=== PATIENT | male | born 1940 | race Caucasian/White ===

== ENCOUNTER 2018-01-26 12:51 | Observation (INO) | payer MEDICARE, OTHER ==
[2018-01-26 13:27] LABS: #Basophils 0.1 thou/uL (0.0-0.2); #Eosinphils 0.1 thou/uL (0.0-0.7); #Lymphocytes 2.1 thou/uL (1.20-3.40); #Monocytes 0.9 thou/uL (0.11-0.59); #Neutrophils 9.3 thou/uL (1.40-6.50); %Basophils 0.9 % (0.0-1.0); %Eosinophils 0.4 % (0.0-10.0); %Lymphocytes 16.6 % (21.0-51.0); %Monocytes 7.3 % (0.0-10.0); %Neutrophils 74.7 % (42.0-75.0); Mean Corpuscular HGB CONC 32.9 g/dL (32.0-36.0); Mean Corpuscular Hemoglobin 30.1 pg (27.0-31.0); Mean Corpuscular Volume 91.3 fL (78.0-98.0); Mean Platelet Volume 6.2 fL (7.4-10.4); Platelet Count 325 thou/uL (130-400); RBC Distribution Width 11.4 % (11.5-14.5); Red Blood Cell (RBC) Count 4.99 mill/uL (4.70-6.10); White Blood Cell (WBC) Count 12.4 thou/uL (4.8-10.8)
[2018-01-26 13:43] LABS: ALT (SGPT) 27 U/L (8-55); AST (SGOT) 20 U/L (5-34); Albumin 4.5 g/dL (3.4-4.8); Alkaline Phosphatase 69 U/L (40-150); Anion Gap 14 mmol/L (10-20); BUN (Urea Nitrogen) 13 mg/dL (8.4-25.7); Bilirubin, Total 0.6 mg/dL (0.2-1.2); CK (CPK) 308 U/L (30-200); Calc. Creatinine Clearance 0 mL/min (70-130); Calcium 9.4 mg/dL (7.8-10.44); Carbon Dioxide 26 mmol/L (23-31); Chloride 96 mmol/L (98-107); Estimated GFR-MDRD 74; Globulin 2.8 g/dL (2.4-3.5); Glucose 140 mg/dL (83-110); Lipase 17 U/L (8-78); Potassium 3.6 mmol/L (3.5-5.1); Protein, Total 7.3 g/dL (5.8-8.1); Sodium 132 mmol/L (136-145)
[2018-01-26 13:46] LABS: Troponin I Less than 0.010 ng/mL (< 0.028)
--- NOTE | 2018-01-26 14:34 | RAD ---
PORTABLE CHEST: HISTORY: Chest pain. COMPARISON: 01/24/2018 FINDINGS: There are chronic appearing linear markings in the lung bases. No evidence of infiltrate or effusion . No evidence of vascular congestion. The heart and mediastinal are unremarkable. IMPRESSION: Chronic lung changes appear stable. POS: [facility]
[2018-01-26] MEDS ORDERED: Labetalol HCl 100 MG/20 ML VIAL ONE (14:40)
[2018-01-26] MEDS ORDERED: Ondansetron HCl/PF 4 MG/2 ML Vial IVP PRN (16:49)
[2018-01-26] MEDS ORDERED: Ondansetron ODT 4 MG TAB SL PRN (16:49)
[2018-01-26 17:00] VITALS: BMI 28.0
[2018-01-26] MEDS ORDERED: Prevnar 13-Val Conj/PF 0.5 ML SYRINGE IM ONE (17:45)
[2018-01-26] MEDS ORDERED: cloNIDine 0.1 MG TAB PO PRN (18:22)
[2018-01-26] MEDS ORDERED: Ondansetron HCl/PF 4 MG/2 ML Vial SLOW IVP PRN (18:23)
[2018-01-26] MEDS ORDERED: Morphine 4 MG/ML VIAL SLOW IVP PRN (18:26)
[2018-01-26] MEDS ORDERED: Ramipril 5 MG CAP PO SCH (18:30)
[2018-01-26] MEDS ORDERED: Carvedilol 6.25 MG TAB PO SCH (18:30)
[2018-01-26] MEDS: Sodium Chloride 0.45% 1,000 ML IV SCH (18:42)
[2018-01-26 19:51] LABS: Troponin I Less than 0.010 ng/mL (< 0.028)
[2018-01-26] MEDS ORDERED: Atorvastatin Calcium 40 MG TAB PO SCH (21:00)
[2018-01-26] MEDS ORDERED: Zolpidem Tartrate 5 MG TAB PO SCH (21:00)
[2018-01-26] MEDS: Nitroglycerin 2% Ointment 1 INCH/1 GM Packet TOP SCH (22:05)
--- NOTE | 2018-01-26 23:17 | HP ---
INITIATION OF OBSERVATION: 01/25/2018 CHIEF COMPLAINT: Chest pain and palpitations along with hypertensive urgency. HISTORY OF PRESENT ILLNESS: Patient is a 77-year-old male, who had run out of his blood pressure med icine several weeks ago and actually came into [facility], the night before having 21 , at that point, they gave him some amlodipine subscription and told him to follow up with Dr. Justina hahn. However, on the day of observation about 10:00 a.m., started having pressure in his chest, it r adiated up into a tight full sensation in his neck. He also had shortness of breath and nausea. He denies any diaphoresis. There is still going on somewhat at this point in time. His initial sets of cardiac enzymes so far negative. He has a long smoking history, but quit 12 years ago. Other risk factors of course, includes hypertension, dyslipidemia, and medication noncompliance. He is being pu t in the hospital to run additional enzymes and further evaluate his heart. PAST MEDICAL HISTORY: Significant for being very hard of hearing, hypertension, dyslipidemia, GERD. There are some cardiac issues, possible atrial fibrillation in the past (unconfirmed). PAST SURGICAL HISTORY: Includes appendectomy, bilateral cataract removal with lens implants. PSYCHIATRIC HISTORY: Negative for any inpatient hospitalizations. SOCIAL HISTORY: Denies alcohol use. Former smoker, quit cigarettes 12 years ago. Smoked extensivel y prior to that. FAMILY HISTORY: Noncontributory. REVIEW OF SYSTEMS: At the time of admission, GENERAL: Constitutionally denies fever or chills. HEENT: Vision has been good. No ear pain. He is hard of hearing. No ulcerations or drainage from ear, nose, or throat. CHEST: He has short-winded, but denies any cough. CARDIOVASCULAR: He has chest pressure and has had some palpitations causing pressure up in his chest where he had throbbed. He denies diaphoresis. GI: He has had some nausea associated with this, but no vomiting or diarrhea. GENITOURINARY: No blood in urine or stool or painful urination. MUSCULOSKELETAL: Denies any joint stiffness or painful range of motion. SKIN: He has no acute lesions or rashes. NEUROLOGIC: Denies any confusion or trouble with mentation. ALLERGIES: Denies any new rashes, allergies, or swelling. LYMPHATICS: Denies any new edema, bruising or ecchymosis. PSYCHIATRIC: Positive for depression, admitted by his son. ALLERGIES: TETANUS TOXOID allergy. MEDICATIONS ON ADMISSION: Amlodipine/benazepril 10/20 one p.o. q. day, simvastatin 80 mg at bedtime, Nexium 40 mg daily, and Centrum Silver daily. PHYSICAL EXAMINATION: VITAL SIGNS: On admission, blood pressure 216/92, pulse initially was greater than 114, 115 with ER physician gave him some metoprolol, which lowered his blood pressure and his heart rate. His pressur e had gotten as high as 235/116, currently at the time of admission, it has come down to 188/93, O2 s at 93% on room air, zero on a pain scale. HEENT: Normocephalic and atraumatic. Pupils with diminished reactivity to light with arcus senilis bilaterally. Pupils are right at 2 mm. There is no conjunctival icterus. TMs, nares, pharynx clear . Membranes moist. NECK: Supple, trachea midline. CHEST: Diminished breath sounds throughout. HEART: Regular rate and rhythm at a pulse of about 80. ABDOMEN: Soft, nontender, without organomegaly. GENITOURINARY: Deferred. EXTREMITIES: Without clubbing, cyanosis, or edema. Normal range of motion present. SKIN: Without acute rashes or lesions. NEUROLOGIC: Cranial nerves are intact. Gait normal. Cerebellar function intact. Deep tendon refle xes are 1 bilaterally. Babinskis down bilaterally. LABORATORY AND X-RAY FINDINGS: Lab work on admission showed WBC 12.4, hemoglobin 15, hematocrit 45.6 , platelets at 325. Sodium 132, potassium 3.6, chloride 96, CO2 of 26, BUN 13, creatinine 0.99 with a GFR of 74, glucose 140, calcium 9.4. Liver functions unremarkable. CK at 308. Troponins are nega tive x2 so far. Liver functions normal. Chest x-ray shows evidence of chronic obstructive pulmonary disease, but no acute findings. ASSESSMENT: 1. Chest pain and high risk noncompliant individual. 2. Hypertensive urgency. 3. Chronic obstructive pulmonary disease. 4. Dyslipidemia. PLAN: 1. Telemetry to finish the serial cardiac enzymes. 2. Cardiolite stress test. 3. Cardiac consultation. 4. Medication to control blood pressure. 5. Serial reevaluation and reassessment.
[2018-01-27 04:31] LABS: #Basophils 0.1 thou/uL (0.0-0.2); #Eosinphils 0.1 thou/uL (0.0-0.7); #Lymphocytes 2.1 thou/uL (1.20-3.40); #Neutrophils 6.2 thou/uL (1.40-6.50); %Basophils 0.6 % (0.0-1.0); %Eosinophils 1.5 % (0.0-10.0); %Lymphocytes 21.8 % (21.0-51.0); %Monocytes 10.3 % (0.0-10.0); %Neutrophils 65.8 % (42.0-75.0); Hemoglobin 13.9 g/dL (14.0-18.0); Hemoglobin A1c 5.9 % (4.0-6.0); Mean Corpuscular HGB CONC 33.2 g/dL (32.0-36.0); Mean Corpuscular Hemoglobin 30.1 pg (27.0-31.0); Mean Corpuscular Volume 90.7 fL (78.0-98.0); Mean Platelet Volume 6.3 fL (7.4-10.4); Platelet Count 319 thou/uL (130-400); RBC Distribution Width 11.3 % (11.5-14.5); Red Blood Cell (RBC) Count 4.62 mill/uL (4.70-6.10); White Blood Cell (WBC) Count 9.5 thou/uL (4.8-10.8)
[2018-01-27 04:36] LABS: Anion Gap 13 mmol/L (10-20); BUN (Urea Nitrogen) 13 mg/dL (8.4-25.7); Calc. Creatinine Clearance 82 mL/min (70-130); Calcium 9.1 mg/dL (7.8-10.44); Carbon Dioxide 26 mmol/L (23-31); Cardiac Risk 2.4 (Less than 4.5); Chloride 98 mmol/L (98-107); Cholesterol 98 mg/dl (< 200 Desired); Estimated GFR-MDRD 70; Glucose 104 mg/dL (83-110); HDL Cholesterol 41 mg/dL (>60 Neg Risk); LDL Cholesterol, Calculated 31 mg/dL; Potassium 3.8 mmol/L (3.5-5.1); Sodium 133 mmol/L (136-145); Triglycerides 130 mg/dL (Less than 150)
[2018-01-27] MEDS: Sodium Chloride 0.45% 1,000 ML IV SCH (04:55)
[2018-01-27] MEDS: Nitroglycerin 2% Ointment 1 INCH/1 GM Packet TOP SCH ×2 (04:57→11:51)
[2018-01-27] MEDS ORDERED: Pilocarpine 5 MG TAB PO SCH (09:00)
[2018-01-27] MEDS ORDERED: Amlodipine 10 MG TAB PO SCH (09:00)
[2018-01-27] MEDS ORDERED: Nystatin 500,000 UNITS/5 ML UDCUP SSW SCH (09:00)
[2018-01-27] MEDS ORDERED: Ramipril 5 MG CAP PO SCH (09:00)
[2018-01-27] MEDS ORDERED: Carvedilol 6.25 MG TAB PO SCH (09:00)
[2018-01-27] MEDS ORDERED: Regadenoson 0.4 MG/5 ML SYRINGE ONE (10:25)
[2018-01-27 11:28] VITALS: BP 129/67; TEMP 97.7
--- NOTE | 2018-01-27 11:36 | NM ---
MYOCARDIAL PERFUSION STUDY: DATE: 01/27/18. HISTORY: Chest pain and dyspnea. RADIOPHARMACEUTICALS: 30 mCi Technetium 99m sestamibi, IV at stress, and 10 mCi Technetium 99m sestamibi, IV at rest. MEDICATIONS: 0.4 mg of LexiScan, IV. FINDINGS: Normal uptake of radiotracer is seen throughout the left ventricular myocardium on the stress and res t acquisitions. No significant reversible defect is identified. Gated images show normal ventricula r wall motion and wall thickening. The calculated left ventricular ejection fraction is 60%. The tr ansient ischemic dilatation ratio is elevated at 1.24 with upper normal being 1.22. IMPRESSION: 1. Normal myocardial perfusion study without evidence of a reversible defect seen to suggest ischemi a. 2. Elevation of the transient ischemic dilatation ratio, which is 1.24. 2. Normal left ventricular ejection fraction of 60%. POS: [facility]
--- NOTE | 2018-01-27 17:13 | CON ---
DATE OF CONSULTATION: 01/27/2018 REASON FOR CONSULTATION: Chest pain. HISTORY OF PRESENT ILLNESS: Mr. Lopez is a pleasant 77-year-old gentleman who has been seen and ev aluated by Cardiology in the past. He states he ran out of his medications. His blood pressure was 220 systolic. He developed chest pain. No radiation. He proceeded to the emergency room where vickyi n he was found to have elevated blood pressure. He has given medication with improvement. His recen t stress study was negative for ischemia. PAST MEDICAL HISTORY: Hypertension, hyperlipidemia, acid reflux. PAST SURGICAL HISTORY: Appendectomy, cataract removal. SOCIAL HISTORY: No current tobacco or alcohol use. REVIEW OF SYSTEMS: A 10-point review of systems was reviewed as above, otherwise negative. PHYSICAL EXAMINATION: VITAL SIGNS: Blood pressure 129/67, pulse 85, temperature 97.7. GENERAL: Patient is a pleasant male/female who is in no acute distress. The patient appears his/her stated age. NEUROLOGIC: The patient is alert and oriented times 3 with no focal neurologic deficits. HEENT: Sclerae without icterus. Mouth has moist mucous membranes with normal pallor. NECK: No JVD. Carotid upstroke brisk. No bruits bilaterally. LUNGS: Clear to auscultation with unlabored respirations. BACK: No scoliosis or kyphosis. CARDIAC: Regular rate and rhythm with normal S1 and S2. No S3 or S4 noted. No significant rubs, mu rmurs, thrills, or gallops noted throughout the precordium. PMI is not displaced. There is no timmy ternal heave. ABDOMEN: Soft, nontender, nondistended. No peritoneal signs present. No hepatosplenomegaly. No ab normal striae. EXTREMITIES: 2+ femoral and 2+ dorsalis pedis pulses. No cyanosis, clubbing, or edema. SKIN: No gross abnormalities. LABORATORY: Stress rest myocardial presented negative for ischemia. TID was at the upper limits are normal, but likely related to low systolic and diastolic volumes. IMPRESSION: 1. Atypical chest pain. 2. Hypertensive urgency. RECOMMENDATIONS: Mr. Lopez's symptoms likely secondary to hypertensive urgency. He has been place d on his outpatient medications with improvement. Plan is to follow up Mr. Lopez 1-2 weeks.
== END 2018-01-27 12:50 | disposition home or self-care (01) ==
LOC: ERS 12:51 → 2SW 15:49
PROVIDERS: ADMIT Specialist; ATTEND Specialist
DX: R07.89 Other chest pain (principal); I16.0 Hypertensive urgency; I10 Essential (primary) hypertension; E78.5 Hyperlipidemia, unspecified; K21.9 Gastro-esophageal reflux disease without esophagitis; J44.9 Chronic obstructive pulmonary disease, unspecified; Z87.891 Personal history of nicotine dependence; Z79.899 Other long term (current) drug therapy; Z88.7 Allergy status to serum and vaccine; Z91.14 Patient's other noncompliance with medication regimen
CPT/HCPCS: 71045; 78452; 80048; 80053; 80061; 82550; 82553; 83036; 83690; 84484 ×2; 85025 ×2; 90670; 93005; 93017; 94640; 94760; 96361 ×2; 96374; 99285; A9500; G0009; G0378 ×2; 36415; 90471; A4216; J2785; J7620

== ENCOUNTER 2018-01-28 12:59 | Inpatient (IN) | payer MEDICARE, OTHER ==
[2018-01-28 13:17] LABS: #Eosinphils 0.1 thou/uL (0.0-0.7); #Lymphocytes 2.5 thou/uL (1.20-3.40); #Monocytes 0.9 thou/uL (0.11-0.59); #Neutrophils 8.1 thou/uL (1.40-6.50); %Basophils 0.3 % (0.0-1.0); %Eosinophils 0.9 % (0.0-10.0); %Lymphocytes 21.7 % (21.0-51.0); %Neutrophils 69.1 % (42.0-75.0); Hemoglobin 15.3 g/dL (14.0-18.0); Mean Corpuscular HGB CONC 33.6 g/dL (32.0-36.0); Mean Corpuscular Hemoglobin 30.3 pg (27.0-31.0); Mean Platelet Volume 6.2 fL (7.4-10.4); Platelet Count 323 thou/uL (130-400); RBC Distribution Width 11.2 % (11.5-14.5); Red Blood Cell (RBC) Count 5.06 mill/uL (4.70-6.10); White Blood Cell (WBC) Count 11.7 thou/uL (4.8-10.8)
[2018-01-28 13:23] LABS: PTT 27.2 SEC (22.9-36.1)
[2018-01-28 13:24] LABS: Prothrombin Time 13.2 SEC (12.0-14.7)
[2018-01-28 13:34] LABS: CKMB 2.7 ng/mL (0-6.6); Troponin I Less than 0.010 ng/mL (< 0.028)
[2018-01-28 13:36] LABS: ALT (SGPT) 31 U/L (8-55); AST (SGOT) 26 U/L (5-34); Albumin 4.6 g/dL (3.4-4.8); Alkaline Phosphatase 67 U/L (40-150); Anion Gap 17 mmol/L (10-20); BUN (Urea Nitrogen) 14 mg/dL (8.4-25.7); Bilirubin, Total 0.8 mg/dL (0.2-1.2); Calc. Creatinine Clearance 0 mL/min (70-130); Calcium 9.6 mg/dL (7.8-10.44); Carbon Dioxide 21 mmol/L (23-31); Chloride 95 mmol/L (98-107); Estimated GFR-MDRD 87; Globulin 2.6 g/dL (2.4-3.5); Glucose 124 mg/dL (83-110); Potassium 3.8 mmol/L (3.5-5.1); Protein, Total 7.2 g/dL (5.8-8.1); Sodium 129 mmol/L (136-145)
--- NOTE | 2018-01-28 14:32 | CT ---
CT BRAIN WITHOUT CONTRAST: COMPARISON: None. HISTORY: Slurred speech. TECHNIQUE: Multiple contiguous axial images were obtained in a CT of the brain without contrast. FINDINGS: There are scattered hypodensities in the subcortical and periventricular white matter, likely seconda ry to small-vessel ischemic disease. No large confluent infarction is seen. There is no evidence of hydrocephalus, intracranial hemorrhage, or extraaxial fluid collection. The calvarium and overlying soft tissues are unremarkable. The visualized paranasal sinuses and mast oid air cells are well aerated. IMPRESSION: No evidence of acute intracranial abnormality. Dr. Shah notified of the findings at 1:08 p.m. on 01/28/18. CODE CR POS: [facility]
[2018-01-28 15:08] LABS: Amphetamine Not Detected (NotDetected); Barbiturates Screen Not Detected (NotDetected); Benzodiazepine Screen Not Detected (NotDetected); Cocaine Metabolite Screen Not Detected (NotDetected); Medtox Control Line Valid? VALID (VALID); Medtox Reader # READER 1; Methadone Not Detected (NotDetected); Methamphetamine Not Detected (NotDetected); Opiate Screen Not Detected (NotDetected); Oxycodone Screen Not Detected (NotDetected); Phencyclidine (PCP) Not Detected (NotDetected); THC/Cannabinoid Screen Not Detected (NotDetected); Tricyclic Screen Not Detected (NotDetected)
[2018-01-28 17:15] LABS: Troponin I Less than 0.010 ng/mL (< 0.028)
[2018-01-28 17:23] VITALS: BMI 28.9
--- NOTE | 2018-01-28 18:06 | CT ---
CT ANGIOGRAM HEAD WITH IV CONTRAST AND 3D RECONSTRUCTIONS CT ANGIOGRAM NECK WITH IV CONTRAST AND 3D RECONSTRUCTIONS: DATE: 01/28/18. HISTORY: Slurred speech. Stroke alert. COMPARISON: Noncontrast CT head also obtained earlier on this date. FINDINGS: Vascular calcifications are seen in the aortic arch. There is a normal arrangement of the great vess els at the aortic arch which are patent. The innominate artery as well as bilateral subclavian arter ies are patent. The bilateral common carotid arteries are patent. There is mild atherosclerotic vielka cification seen at the distal common carotid arteries and in the region of the carotid bulbs, but the re is less than 50% maximal stenosis involving the bilateral internal carotid arteries according to N ASCET criteria. The left vertebral artery is dominant, but the vertebral arteries are patent bilater ally. The left vertebral artery arises from the aortic arch, which is a normal variant. The basilar artery and bilateral posterior cerebral arteries are patent. The bilateral middle cerebr al and anterior cerebral arteries are patent. No focal significant stenosis or branch occlusion is s een. No aneurysm is seen within the limitations of the technique of this exam. There are prominent vascular calcifications in the carotid siphons bilaterally. There is atelectasis in the visualized upper lung zones, greater in each lung apex. Degenerative changes are noted in the spine. Bilateral submandibular and parotid glands as well as the thyroid gland have a normal CT appearance. IMPRESSION: 1. No significant focal stenosis or branch occlusion is seen involving the [place] or verte brobasilar system. 2. Left vertebral artery arises from the aortic arch which is a normal variant and is dominant re red to right vertebral artery, but the vertebral arteries are patent bilaterally. 3. Less than 50% maximal stenosis involving the proximal bilateral internal carotid arteries with mi ld atherosclerotic plaque seen at the origins of each internal carotid artery. POS: [facility]
[2018-01-28 20:17] LABS: Troponin I Less than 0.010 ng/mL (< 0.028)
[2018-01-28] MEDS ORDERED: Ondansetron HCl/PF 4 MG/2 ML Vial SLOW IVP PRN (20:23)
[2018-01-28] MEDS ORDERED: Pantoprazole 40 MG VIAL IVP SCH (20:30)
[2018-01-28] MEDS ORDERED: Ondansetron HCl/PF 4 MG/2 ML Vial SLOW IVP SCH (20:30)
[2018-01-28] MEDS ORDERED: Clopidogrel Bisulfate 75 MG TAB PO SCH (21:00)
[2018-01-28] MEDS: Simvastatin 40 MG TAB PO SCH (21:11)
[2018-01-28] MEDS: Zolpidem Tartrate 5 MG TAB PO SCH (21:12)
[2018-01-28] MEDS: Carvedilol 6.25 MG TAB PO SCH (21:13)
--- NOTE | 2018-01-28 22:16 | HP ---
DATE OF ADMISSION: 01/28/2018 CHIEF COMPLAINT: CVA/TIA. HISTORY OF PRESENT ILLNESS: Patient is a 77-year-old male who just 2 days prior been released from [facility] for a chest pain workup that was negative. He was in his usual state of health wh en suddenly this morning he began to feel really depressed and down. He just did not feel good. The n, he began to have slurred speech and weakness and tingling in his left hand, left arm. The family noticed he had left facial droop. EMS was called and the [facility] was activated and he was flown straight in. By the time he had arrived, he had shown significant improvement. His NIH score was do wn to 2 at the time of observation. He did have some pain behind his eyes and has had difficulty swa llowing, but has not improved since he has been at the hospital. He is unable to write any current p ain. During his general evaluation, he has some tenderness in his abdomen, but it quickly abated and his abdomen is completely nontender at this time. He still remains having left-sided facial weaknes s, slurred speech, and difficulty swallowing. He still states that his left hand has some tingling i n the C5-C6 distribution such that he will be further evaluated. PAST MEDICAL HISTORY: As previously mentioned hospitalized 2 days earlier for chest pain that showed no cardiac etiology to that. He was, however, started on antidepressant sertraline for depression. He also has hyperlipidemia, hypertension, GERD. PAST SURGICAL HISTORY: Appendectomy and bilateral cataract removal. No psychiatric hospitalizations . SOCIAL HISTORY: Denies alcohol use. He is a previous smoker, but quit more than 10 years ago and li ves alone at home with a history of excessive alcohol use in the past. ALLERGIES: He is allergic to TETANUS VACCINE and TOXOID. CURRENT MEDICATIONS: Amlodipine/benazepril 10/20 one q.a.m., simvastatin 80 mg q.a.m., Nexium 40 mg daily, and the aforementioned sertraline 50 mg at bedtime and then Centrum Silver. REVIEW OF SYSTEMS: He denies any fever, chills, but he does feel generally bad. Again, describe it better than. HEENT: Reported some pain behind his eyes, but no eye discharge or drainage. No ulcer ations in his ear, nose or throat and no drainage there as well. Chest: Denies cough, shortness of breath. Cardiovascular: Denies chest pain or palpitations. Musculoskeletal: Denies any pain with range of motion or weakness. Skin: No new rashes or lesions. Neurologic: He has got difficulty sw allowing and slurred speech. Endocrine: He has no new hot flashes, constipation. Gastrointestinal: Denies nausea, vomiting, diarrhea, but did have some vague right upper quadrant pain, that is no go ne. Genitourinary: Has difficulty initiating urination, but denies blood in urine or stool. Psychi atric: He is depressed. PHYSICAL EXAMINATION: VITAL SIGNS: Blood pressure on arrival 176/70, pulse 96, respirations 20, temperature 98.4. Pain sc sammie is at 3/10, O2 sat 95% on room air. While in the ER, his blood pressure did get up besides 196/8 0. GENERAL: This is a well-developed, well-nourished elderly male, alert, oriented, and coope rative, in no acute distress. HEENT: Normocephalic and atraumatic. Pupils at 2 mm bilaterally with arcus senilis bilaterally and diminished reactivity to light. TMs, nares, pharynx are clear. NECK: Supple with loud cardiac beats on the right and normal beats on the left. No stenotic bruits noted. CHEST: Generally diminished breath sounds throughout, but no acute wheezing or rhonchi. HEART: Regular rate and rhythm, slow. ABDOMEN: Soft, nontender at this exam. No hepatosplenomegaly. GENITOURINARY: Deferred. EXTREMITIES: Without clubbing, cyanosis, or edema. Normal range of motion present. SKIN: Without rashes or lesions. NEUROLOGIC: He states there is diminished sensation in his left lateral thigh and in his left finger tips. Also he has diminished function of cranial nerve 7 on the left with obvious facial drooping an d slurring of speech, gait and cerebellar function untested. Mental status significant for depressio n. LABORATORY AND X-RAY FINDINGS: Lab work on admission WBC 11.7, hemoglobin 15.3, hematocrit 45.5 with platelets at 323. Sodium at 129, potassium 3.8, chloride 95, CO2 of 21, BUN 14, creatinine 0.86 wit h a GFR of 87, glucose of 124. Liver functions normal. Cardiac enzymes negative. PT is 13.2, INR 1 .0. Urine drug screen completely negative. CT [place] shows no significant focal stenosis. The CT of the brain shows no evidence of acute intracranial abnormality and finally a CT angiograph y of the neck and head regions showed no significant focal stenosis repeating with the [place] is evaluation stated. ASSESSMENT: 1. Cerebrovascular accident downgraded to transient ischemic attack with residual symptoms of left f acial weakness, slurred speech, and difficulty swallowing. 2. Hypertension. 3. Anxiety/depression. 4. History of dyslipidemia and tobacco abuse. PLAN: MRI of the brain/MRA. We will put him on Plavix and continue his aspirin. Neurology consulta tion will be in the morning. Serial reevaluation will be performed and a swallow evaluation.
[2018-01-29 05:38] LABS: #Eosinphils 0.1 thou/uL (0.0-0.7); #Lymphocytes 1.7 thou/uL (1.20-3.40); #Monocytes 0.9 thou/uL (0.11-0.59); %Basophils 0.3 % (0.0-1.0); %Eosinophils 1.6 % (0.0-10.0); %Lymphocytes 19.9 % (21.0-51.0); %Monocytes 10.1 % (0.0-10.0); Hemoglobin 14.1 g/dL (14.0-18.0); Mean Corpuscular Hemoglobin 30.7 pg (27.0-31.0); Mean Corpuscular Volume 90.4 fL (78.0-98.0); Mean Platelet Volume 6.2 fL (7.4-10.4); Platelet Count 330 thou/uL (130-400); RBC Distribution Width 11.2 % (11.5-14.5); Red Blood Cell (RBC) Count 4.61 mill/uL (4.70-6.10); White Blood Cell (WBC) Count 8.8 thou/uL (4.8-10.8)
[2018-01-29 05:46] LABS: Anion Gap 11 mmol/L (10-20); BUN (Urea Nitrogen) 14 mg/dL (8.4-25.7); Calc. Creatinine Clearance 79 mL/min (70-130); Carbon Dioxide 28 mmol/L (23-31); Chloride 94 mmol/L (98-107); Estimated GFR-MDRD 67; Glucose 100 mg/dL (83-110); Sodium 129 mmol/L (136-145)
[2018-01-29] MEDS: Clopidogrel Bisulfate 75 MG TAB PO SCH (08:55)
[2018-01-29] MEDS: Carvedilol 6.25 MG TAB PO SCH ×2 (08:55→20:49)
[2018-01-29] MEDS: Amlodipine 10 MG TAB PO SCH (08:56)
[2018-01-29] MEDS ORDERED: Pantoprazole 40 MG VIAL IVP SCH (09:00)
--- NOTE | 2018-01-29 09:39 | ULT ---
RIGHT UPPER QUADRANT ULTRASOUND: HISTORY: Intermittent right upper quadrant pain. FINDINGS: Multiple longitudinal and transverse images of the right upper quadrant of the abdomen are obtained u sing a multihertz curvilinear transducer. Real-time and color flow as well as spectral waveform anal ysis demonstrates some fibrofatty changes seen in the liver. The gallbladder is visualized. Echogen ic foci are seen within the gallbladder compatible with numerous gallstones. The gallbladder wall is not significantly thickened. Common bile duct is upper limits of normal in size measuring 5 mm. No evidence of intrahepatic biliary dilatation seen. The pancreas is suboptimally visualized, due to overlying bowel gas. Normal hepatopetal flow is seen in the portal vein. The right kidney is unremarkable with no evidence of hydronephrosis or masses. Some small areas of h yperechogenicity are seen in the right renal parenchymal compatible with nonobstructing right renal c alculus. IMPRESSION: 1. Gallbladder sludge and small gallstones without evidence of definite cholecystitis. 2. Possible nephrolithiasis without evidence of obstruction. POS: [facility]
--- NOTE | 2018-01-29 13:12 | MRI ---
MRI BRAIN WITHOUT CONTRAST: History: Slurred speech. Comparison: None. Technique: Multiplanar, multisequence MRI images were obtained of the brain without intravenous gadol inium administration. FINDINGS: Hypointensity on axial GRA sequence in the left lentiform nucleus indicates remote hemorrhage infarct . No parenchymal mass, mass effect, or midline shift. Brain volume, age appropriate. Cortical mayes whit e matter differentiation is preserved. The ventricles and sulci are patent and symmetric. Central arterial flow voids are maintained. Absent restricted diffusion. T2 and FLAIR white matter hyperintensity due to chronic small vessel ischemic change. Adequate aeration of the sinuses and mastoid air cells. Central arterial flow voids are maintained. Absent restricted diffusion. IMPRESSION: 1. Chronic small vessel ischemic change in the white matter. 2. Absent restricted diffusion. No acute infarct. POS: [facility]
[2018-01-29] MEDS ORDERED: Acetaminophen 325 MG TAB PO PRN (15:37)
[2018-01-29] MEDS: ALPRAZolam 0.25 MG TAB PO SCH ×2 (15:57→20:49)
[2018-01-29] MEDS: Simvastatin 40 MG TAB PO SCH (20:49)
[2018-01-29] MEDS: Zolpidem Tartrate 5 MG TAB PO SCH (20:50)
--- NOTE | 2018-01-29 22:55 | CON ---
DATE OF CONSULTATION: 01/29/2018 REFERRING PHYSICIAN: Dr. North Shultz. REASON FOR CONSULTATION: Facial droop, slurred speech, and left-sided paresthesia. HISTORY OF PRESENT ILLNESS: Mr. Lopez is a pleasant 77-year-old male who has been consul [facility] for evaluation of slurred speech, facial droop, and left-sided paresthesia. History is obtained from patient's son, who was present at bedside. Son reports that patient has a history of hypertensi on. He has been off his medications since December of this year. He reports that 2-3 days ago, he had an episode of left-sided paresthesia, for which he had come to [facility] at that mart e, he was being evaluated by Cardiology and had a stress test done, which was apparently normal. He was discharged home. He reports that on yesterday he had an episode of left facial droop, slurred sp eech, and left-sided numbness and tingling. This concerned them and thus he was brought back to the [facility]. The symptoms have been waxing and waning since being admitted to the hosp ital. He currently denies any headache, chest pain, palpitation, nausea, vomiting, weakness in upper or lower extremities are difficulty with gait or balance. PAST MEDICAL HISTORY: Significant for hypertension, depression, hyperlipidemia, and GERD. PAST SURGICAL HISTORY: Significant for appendectomy, bilateral cataract surgery. SOCIAL HISTORY: Denies smoking. He denies alcohol use. He denies illicit drug use. He does have h istory of smoking in the past, but quit more than 10 years ago. FAMILY HISTORY: Noncontributory. CURRENT MEDICATIONS: Please review MAR. ALLERGIES: Include TETANUS VACCINE AND TOXOID. REVIEW OF SYSTEMS: As mentioned in the HPI, otherwise negative. PHYSICAL EXAMINATION: VITAL SIGNS: Blood pressure of 156/67, pulse is 72, temperature 98.1, respirations 16, O2 sats of 93 % on room air. GENERAL: Well-developed, well-nourished male in no apparent distress. RESPIRATORY: Clear to auscultation bilaterally. CARDIOVASCULAR: Regular rate and rhythm. NEUROLOGIC: Mental status: Patient is awake, alert, oriented x3. Speech and language: Fluent spee ch. Cranial nerves: Pupils are 3 mm and reactive. Visual ramirez are intact. Extraocular muscles a re intact. No nystagmus noted. Face is symmetric. Tongue and uvula are midline. Motor exam showed normal tone and bulk with 5/5 strength in both upper and lower extremities. Sensory: Sensation is intact and symmetric. Deep tendon reflexes 2+ reflexes in both upper and lower extremities. Bab[place] i: Plantar responses flexion bilaterally. Coordination intact to [id number] tapping bilater ally. LABORATORY DATA: Reviewed, which included CBC, CMP, urine drug screen, which is significant for sodi um of 129. CPK of 249, otherwise negative. IMAGING STUDIES: MRI brain without contrast was reviewed, which showed no acute intracranial abnorma lity. CT angiogram of the head and neck were reviewed, which showed no significant intracranial or e xtracranial vascular abnormality. IMPRESSION: 1. Hypertensive urgency. 2. Malignant hypertension. 3. Left-sided paresthesia, due to #1. ASSESSMENT AND PLAN: Mr. Lopez is a pleasant 77-year-old male who presented with an acut e onset of left-sided paresthesia and facial droop and slurred speech. The symptoms have now resolve d. His blood pressure was significantly elevated on arrival, which is likely the contributing factor for his presentation. I have discussed with the family and explained that he needs to be compliant with his medication. He needs to measure his blood pressure at least twice a day and record them for at least 2-3 weeks. He is to take this to primary care physician, who can adjust his antihypertensi ve medication at that time. He will need to continue with aspirin 81 mg daily for secondary stroke p revention. He had CT angiogram of the head and neck done and thus no need to obtain MRI, MRAs. Ther e is no further neurological workup needed from my standpoint. Thank you for consultation.
[2018-01-30] MEDS ORDERED: Melatonin 3 MG TAB PO SCH ×3 (01:30→21:00)
[2018-01-30 05:44] LABS: Anion Gap 16 mmol/L (10-20); BUN (Urea Nitrogen) 17 mg/dL (8.4-25.7); Calc. Creatinine Clearance 83 mL/min (70-130); Carbon Dioxide 19 mmol/L (23-31); Chloride 92 mmol/L (98-107); Estimated GFR-MDRD 71; Glucose 86 mg/dL (83-110); Potassium 3.8 mmol/L (3.5-5.1); Sodium 123 mmol/L (136-145)
[2018-01-30] MEDS: Carvedilol 6.25 MG TAB PO SCH ×2 (08:58→20:55)
[2018-01-30] MEDS: Clopidogrel Bisulfate 75 MG TAB PO SCH (08:59)
[2018-01-30] MEDS: Amlodipine 10 MG TAB PO SCH (09:00)
[2018-01-30] MEDS: Bupropion 150 MG XL TAB PO SCH (09:01)
[2018-01-30] MEDS: Famotidine 20 MG TAB PO SCH (09:01)
[2018-01-30] MEDS: Sodium Chloride 0.9% 1,000 ML IV SCH ×2 (09:43→20:56)
[2018-01-30] MEDS: Melatonin 3 MG TAB PO SCH (20:55)
[2018-01-30] MEDS: Simvastatin 40 MG TAB PO SCH (20:55)
[2018-01-31 06:44] LABS: Anion Gap 12 mmol/L (10-20); BUN (Urea Nitrogen) 18 mg/dL (8.4-25.7); Calc. Creatinine Clearance 94 mL/min (70-130); Calcium 8.7 mg/dL (7.8-10.44); Carbon Dioxide 24 mmol/L (23-31); Chloride 94 mmol/L (98-107); Estimated GFR-MDRD 82; Glucose 71 mg/dL (83-110); Potassium 3.6 mmol/L (3.5-5.1); Sodium 126 mmol/L (136-145)
[2018-01-31] MEDS: Carvedilol 6.25 MG TAB PO SCH ×2 (06:45→21:26)
--- NOTE | 2018-01-31 07:14 | CON ---
DATE OF CONSULTATION: 01/30/2018 REFERRING: Dr. North Shultz at [facility]. HISTORY OF PRESENT ILLNESS: This is a 77-year-old male who presents with intermittent epigastric and upper abdominal pain over the course of the last several weeks. He was admitted to the hospital wit h a drooping face, stroke-like symptoms, found to have significant elevation of his blood pressure. His stroke workup is negative including MRI, [place] CT, brain CT, CT angio. He has been se en by Neurology. They think that his stroke-like symptoms were secondary to high blood pressure that is now controlled. The patient notes nausea. He notes right upper quadrant pain. Ultrasound shows stones. No history of jaundice, pancreatitis. No known history of gallstones. PAST MEDICAL HISTORY: Depression, hyperlipidemia, hypertension, GERD. PAST SURGICAL HISTORY: Appendectomy, cataracts. SOCIAL HISTORY: He is a previous smoker. No alcohol, no other drugs. ALLERGIES: TETANUS VACCINE. MEDICATIONS: See list. FAMILY HISTORY: Noncontributory to GI malignancy or anesthetic related complication. REVIEW OF SYSTEMS: Ten system review of systems otherwise negative unless described above. PHYSICAL EXAMINATION: VITAL SIGNS: Blood pressure 157/69, pulse 57, respirations 18, temperature 97.9. HEENT: Sclerae are anicteric. Oropharynx clear. NECK: No lymphadenopathy. CHEST: Clear. HEART: Regular rate and rhythm. ABDOMEN: Soft, minimally tender right upper quadrant. No guarding or rebound. No abdominal inguina l hernias. EXTREMITIES: No ischemia or edema to extremities. LABORATORY DATA: Sodium 129, potassium 3.8, creatinine 0.86. Liver function tests normal. Back on 01/29/2018 his white cell count is 8.8, hemoglobin 14, platelet count is 330. Ultrasound shows gallbladder sludge and stones. Common bile duct 5 mm. ASSESSMENT: Chronic cholecystitis. PLAN: Laparoscopic cholecystectomy. Risks, benefits, alternatives discussed. He gives consent. We will do this today.
[2018-01-31] MEDS: Clopidogrel Bisulfate 75 MG TAB PO SCH (08:42)
[2018-01-31] MEDS: Amlodipine 10 MG TAB PO SCH (09:09)
[2018-01-31] MEDS: Famotidine 20 MG TAB PO SCH (09:11)
[2018-01-31] MEDS: Bupropion 150 MG XL TAB PO SCH (09:11)
[2018-01-31] MEDS ORDERED: ePHEDrine/0.9% NaCl/PF SYRINGE 50 mg/10 ml ONE (15:41)
[2018-01-31] MEDS ORDERED: PROPOFOL 200 MG/20 ML VIAL ONE (15:41)
[2018-01-31] MEDS ORDERED: Lidocaine 1% PF 5 ML VIAL ONE (15:41)
[2018-01-31] MEDS ORDERED: Ondansetron HCl/PF 4 MG/2 ML Vial ONE (15:41)
[2018-01-31] MEDS ORDERED: Glycopyrrolate 0.2 MG/ML 5 ML SYRINGE ONE (15:41)
[2018-01-31] MEDS ORDERED: Bupivacaine/Epinephrine 0.25% 30 ML VIAL ONE (15:55)
[2018-01-31] MEDS ORDERED: CEFAZOLIN/Water 2 GM/20 ML SYRINGE ONE (16:38)
[2018-01-31] MEDS ORDERED: Fentanyl 100 MCG/2 ML VIAL ONE ×2 (16:49→18:17)
[2018-01-31] MEDS ORDERED: Ketamine 50 MG/ML VIAL ONE (17:54)
[2018-01-31] MEDS: Sodium Chloride 0.9% 1,000 ML IV SCH ×2 (19:10→21:27)
[2018-01-31] MEDS ORDERED: traMADol HCl 50 MG TAB PO PRN (19:44)
[2018-01-31] MEDS ORDERED: HYDROcodone/Acetaminophen 10/325 mg Tablet PO PRN (19:44)
--- NOTE | 2018-01-31 20:19 | OP ---
DATE OF PROCEDURE: 01/31/2018 PREOPERATIVE DIAGNOSIS: Symptomatic gallstones. POSTOPERATIVE DIAGNOSIS: Symptomatic gallstones. PROCEDURE: Laparoscopic cholecystectomy. SURGEON: Dr. Payton. ANESTHESIA: General. ESTIMATED BLOOD LOSS: Minimal. COMPLICATIONS: None. SPECIMEN: Gallbladder. FINDINGS: Cholecystitis. PROCEDURE IN DETAIL: The patient was taken to the Operating Room and laid supine on the Operating Lily m table. After general anesthetic was obtained, the abdomen was prepped and draped in a sterile fashi on. A curved incision was made below the umbilicus. Cautery was used to dissect down to the umbilical fascia. Umbilical fascia was incised and held up using a Keily. The abdominal cavity was entered us ing a Promise clamp. Holding stitch of Vicryl was placed on each side of the fascia. Quintana trocar was placed. High-flow pneumoperitoneum was obtained. An upper midline 5-mm port and two right upper quadr ant 5-mm ports were placed under direct camera visualization. The gallbladder was retracted from the gallbladder fossa. The peritoneum of the gallbladder was opened anteriorly and posteriorly. The criti vielka view triangle was seen showing only the cystic duct and cystic artery branching from medial to la teral. There were no other branching structures. Two clips were placed proximally on the cystic duct and one laterally. It was cut using laparoscopic scissors. The cystic artery was taken in the same wa y. Electrocautery was then used to dissect the gallbladder out of the gallbladder fossa. The gallblad enoch was placed in an Endo catch bag and brought out through the Quintana. There was no bleeding or bile in the liver bed. The cystic duct stump and cystic artery stump were intact without evidence of extr avasation or bleeding. All port sites were infiltrated using local anesthesia. All ports were removed under camera visualization. Pneumoperitoneum was let down. The Vicryl was used to close the fascial defect below the umbilicus. All incisions were irrigated and closed using 4-0 Monocryl and DermaBond. The patient was en route to Recovery in stable condition. All instrument counts, needle counts and l ap counts were correct.
[2018-01-31] MEDS: Simvastatin 40 MG TAB PO SCH (21:27)
[2018-02-01] MEDS: HYDROcodone/Acetaminophen 10/325 mg Tablet PO PRN ×2 (01:09→21:24)
[2018-02-01] MEDS: Melatonin 3 MG TAB PO SCH ×2 (02:29→22:47)
[2018-02-01] MEDS: Sodium Chloride 0.9% 1,000 ML IV SCH (02:29)
[2018-02-01 06:44] LABS: #Monocytes 0.9 thou/uL (0.11-0.59); #Neutrophils 8.9 thou/uL (1.40-6.50); %Basophils 0.2 % (0.0-1.0); %Eosinophils 0.4 % (0.0-10.0); %Lymphocytes 8.9 % (21.0-51.0); %Neutrophils 82.5 % (42.0-75.0); Hemoglobin 12.5 g/dL (14.0-18.0); Mean Corpuscular HGB CONC 33.4 g/dL (32.0-36.0); Mean Corpuscular Hemoglobin 29.8 pg (27.0-31.0); Mean Corpuscular Volume 89.1 fL (78.0-98.0); Mean Platelet Volume 6.1 fL (7.4-10.4); Platelet Count 274 thou/uL (130-400); Red Blood Cell (RBC) Count 4.19 mill/uL (4.70-6.10); White Blood Cell (WBC) Count 10.8 thou/uL (4.8-10.8)
[2018-02-01 06:54] LABS: Anion Gap 11 mmol/L (10-20); BUN (Urea Nitrogen) 14 mg/dL (8.4-25.7); Calc. Creatinine Clearance 100 mL/min (70-130); Calcium 8.1 mg/dL (7.8-10.44); Carbon Dioxide 24 mmol/L (23-31); Chloride 96 mmol/L (98-107); Estimated GFR-MDRD 88; Glucose 131 mg/dL (83-110); Potassium 3.7 mmol/L (3.5-5.1); Sodium 127 mmol/L (136-145)
[2018-02-01] MEDS: Carvedilol 6.25 MG TAB PO SCH ×2 (09:07→21:24)
[2018-02-01] MEDS: Famotidine 20 MG TAB PO SCH (09:07)
[2018-02-01] MEDS: Bupropion 150 MG XL TAB PO SCH (09:07)
[2018-02-01] MEDS: Amlodipine 10 MG TAB PO SCH (09:07)
[2018-02-01] MEDS: Clopidogrel Bisulfate 75 MG TAB PO SCH (09:07)
[2018-02-01 13:23] LABS: Thyroid Stimulating Hormone 1.7452 uIU/mL (0.35-4.94)
[2018-02-01 13:56] LABS: Sodium, Urine 28 mmol/L (Not Available)
[2018-02-01 13:58] LABS: Osmolality, Urine 264 mOsm/kg (300-900)
--- NOTE | 2018-02-01 15:06 | PRG ---
DATE OF SERVICE: 02/01/2018 SUBJECTIVE: Mr. Lopez is postop day #1 laparoscopic cholecystectomy complaining of soreness. No n ausea or vomiting. PHYSICAL EXAMINATION: VITAL SIGNS: He is afebrile. Vital signs are stable. ABDOMEN: Soft, nontender. Wounds are healing well. ASSESSMENT: Postop day #1 laparoscopic cholecystectomy. PLAN: Okay to discharge home from my standpoint. Follow up in my office in 2 weeks. I left a presc ription for tramadol and Zofran on the chart.
--- NOTE | 2018-02-01 16:37 | PDOC.PN ---
- Subjective Encounter Start Date: 02/01/18 Encounter Start Time: 12:45 Subjective: pt up in bed no complains - Objective Vital Signs & Weight: Vital Signs (12 hours) Temp Pulse Resp BP BP Pulse Ox 02/01/18 15:27 98.8 F 67 20 129/61 93 L 02/01/18 12:00 98.8 F 59 L 20 129/64 92 L 02/01/18 09:07 60 148/63 H 02/01/18 07:56 97.9 F 60 18 148/63 H 95 Weight Weight 207 lb 8 oz I&O: 01/31/18 02/01/18 02/02/18 06:59 06:59 06:59 Intake Total 960 2535 600 Balance 960 2535 600 Result Diagrams: 02/01/18 05:46 02/01/18 05:46 Phys Exam - Physical Examination HEENT: PERRLA, moist MMs, sclera anicteric, TM's clear, oral pharynx no lesions , 2+ tonsils Neck: no nodes, no JVD, supple, full ROM Respiratory: no wheezing, no rales, no rhonchi, wheezing present, clear to auscultation bilateral Cardiovascular: RRR, no significant murmur, no rub, gallop, irregular Gastrointestinal: soft, positive bowel sounds laproscopic inscision Dx/Plan (1) Hyponatremia Code(s): E87.1 - HYPO-OSMOLALITY AND HYPONATREMIA Status: Acute (2) S/P laparoscopic cholecystectomy Code(s): Z90.49 - ACQUIRED ABSENCE OF OTHER SPECIFIED PARTS OF DIGESTIVE TRACT Status: Acute - Plan pt initially came in for stroke like symptoms was found to have -: acute cholecystitis and underwent lap gisela -: He has hyponatremia will restrict fluids to 1.5L and check -: Na in am if stable will discharge home. -: ok per surgery to go home. * . Review of Systems - Review of Systems Respiratory: negative: Cough, Dry, Shortness of Breath, Hemoptysis, SOB with Excertion, Pleuritic Pain, Sputum, Wheezing Cardiovascular: negative: chest pain, palpitations, orthopnea, paroxysmal nocturnal dyspnea, edema, light headedness, other Gastrointestinal: negative: Nausea, Vomiting, Abdominal Pain, Diarrhea, Constipation, Melena, Hematochezia, Other Genitourinary: negative: Dysuria, Frequency, Incontinence, Hematuria, Retention , Other - Medications/Allergies Allergies/Adverse Reactions: Allergies Allergy/AdvReac Type Severity Reaction Status Date / Time Tetanus Vaccines and Toxoid Allergy Verified 01/26/18 17:20 Medications: Current Medications Acetaminophen (Tylenol) 650 mg PO Q4H PRN PRN Reason: Pain Hydrocodone Bitart/Acetaminophen ([place] 10/325) 1 tab PO Q4H PRN PRN Reason: Pain 4-6 Last Admin: 02/01/18 01:09 Dose: 1 tab Hydrocodone Bitart/Acetaminophen ([place] 10/325) 2 tab PO Q4H PRN PRN Reason: Pain 7-10 Amlodipine Besylate (Norvasc) 10 mg PO DAILY [facility] Last Admin: 02/01/18 09:07 Dose: 10 mg Aspirin (Aspirin Chewable) 81 mg PO DAILY [facility] Last Admin: 02/01/18 09:07 Dose: 81 mg Benazepril HCl (Lotensin) 20 mg PO DAILY [facility] Last Admin: 02/01/18 09:07 Dose: 20 mg Bupropion HCl (Wellbutrin Xl) 150 mg PO DAILY [facility] Last Admin: 02/01/18 09:07 Dose: 150 mg Carvedilol (Coreg) 12.5 mg PO BID [facility] Last Admin: 02/01/18 09:07 Dose: 12.5 mg Clopidogrel Bisulfate (Plavix) 75 mg PO DAILY [facility] Last Admin: 02/01/18 09:07 Dose: 75 mg Famotidine (Pepcid) 20 mg PO DAILY [facility] Last Admin: 02/01/18 09:07 Dose: 20 mg Melatonin (Melatonin) 6 mg PO [facility] Last Admin: 02/01/18 02:29 Dose: Not Given Morphine Sulfate (Morphine) 2 mg SLOW IVP Q4H PRN PRN Reason: Mild-Moderate Pain (1-5) Morphine Sulfate (Morphine) 4 mg IVP Q4H PRN PRN Reason: Moderate to Severe Pain (6-10) Ondansetron HCl (Zofran) 8 mg SLOW IVP Q6H PRN PRN Reason: Nausea/Vomiting Pantoprazole Sodium (Protonix) 40 mg PO DAILY [facility] Simvastatin (Zocor) 80 mg PO HS [facility] Last Admin: 01/31/18 21:27 Dose: 80 mg Simvastatin (Zocor) 80 mg PO DAILY [facility] Sodium Chloride (Flush - Normal Saline) 10 ml IVF Q12HR [facility] Last Admin: 02/01/18 09:08 Dose: Not Given Sodium Chloride (Flush - Normal Saline) 10 ml IVF PRN PRN PRN Reason: Saline Flush Tramadol HCl (Ultram) 50 mg PO Q4H PRN PRN Reason: Pain 1-3
[2018-02-01] MEDS: Simvastatin 40 MG TAB PO SCH (21:24)
[2018-02-02 06:44] LABS: Anion Gap 10 mmol/L (10-20); BUN (Urea Nitrogen) 11 mg/dL (8.4-25.7); Calc. Creatinine Clearance 105 mL/min (70-130); Calcium 8.2 mg/dL (7.8-10.44); Carbon Dioxide 26 mmol/L (23-31); Chloride 94 mmol/L (98-107); Estimated GFR-MDRD Greater than 90; Glucose 83 mg/dL (83-110); Potassium 3.3 mmol/L (3.5-5.1); Sodium 127 mmol/L (136-145)
[2018-02-02] MEDS: Carvedilol 6.25 MG TAB PO SCH (08:41)
[2018-02-02] MEDS: Clopidogrel Bisulfate 75 MG TAB PO SCH (08:41)
[2018-02-02] MEDS: Famotidine 20 MG TAB PO SCH (08:41)
[2018-02-02] MEDS: Bupropion 150 MG XL TAB PO SCH (08:41)
[2018-02-02] MEDS: Amlodipine 10 MG TAB PO SCH (08:43)
[2018-02-02] MEDS ORDERED: Simvastatin 40 MG TAB PO SCH (09:00)
[2018-02-02 11:24] VITALS: BP 112/43; TEMP 97.9
--- NOTE | 2018-02-02 13:11 | DIS ---
DATE OF ADMISSION: 01/28/2018 DATE OF DISCHARGE: 02/02/2018 PRIMARY CARE PROVIDER: [place] Shultz M.D. DISCHARGE DIAGNOSES: 1. Hypertensive urgency. 2. Chronic cholecystitis. CONDITION OF PATIENT ON THE DAY OF DISCHARGE: Stable. I assessed Mr. Lopez on the day of discharg e. He denies any chest pain or shortness of breath. Vital signs are stable. S1 and S2 are heard, r egular. Lungs are clear to auscultation bilaterally. CONSULTATIONS DURING THIS HOSPITALIZATION: Neurology, Dr. Leta Syed and General Surgery, Dr. Colt Payton. DISCHARGE MEDICATIONS: Aspirin 81 mg daily, amlodipine/benazepril 10/20 mg daily, Nexium 40 mg daily , Centrum Silver Men's tablets 1 tablet daily, simvastatin 80 mg daily, and Coreg 6.25 mg 2 times a d ay. HOSPITAL COURSE: Mr. Lopez is a pleasant 77-year-old gentleman who was admitted to [facility] on 01/28/2018 for slurred speech, weakness, and tingling in his left hand and left arm. He also had left facial droop. Please refer to Dr. Shultz' history and physical note dated for further details. MRI of the brain did not show any acute infarct. He had chronic small vessel ischemic change in the white matter. CT angiogram of [place] and neck did not show a ny significant focal stenosis or branch occlusion involving the [place] or vertebrobasilar s ystem. Left vertebral artery arises from the aortic arch, which is a normal variant. Less than 50% maximal stenosis involving the proximal bilateral internal carotid arteries with mild atherosclerotic plaque seen at the origin of each internal carotid artery. He was seen by Neurology Service, who fe lt that his presentation was secondary to hypertensive urgency. He was advised to be compliant with his medication. I am also advising him to measure his blood pressure and heart rate 3 times a day an d show the readings to his primary care provider. He had abdominal ultrasound on 01/29/2018, which showed gallbladder sludge and small gallstones witho ut evidence of definite cholecystitis. He also had possible nephrolithiasis without evidence of obst ruction. He was seen by General Surgery Service. On 01/31/2018, he underwent laparoscopic cholecyst ectomy for chronic cholecystitis. At the time of this dictation, pathology report is pending. He is advised to follow up with his primary care provider for the same. He has received a prescription for tramadol and Zofran from General Surgery Service who has also nolan red him for discharge. Many thanks for allowing me to participate in your patient's care. Please feel free to contact me wi th any questions or concerns. DISCHARGE DESTINATION: Home. TOTAL AMOUNT OF TIME SPENT COORDINATING THIS DISCHARGE: 31 minutes.
== END 2018-02-02 13:58 | disposition home health service (06) | DRG 988 ==
LOC: ERS 12:59 → INTOOBSV 14:40 → 2SE 14:40 → OBSVTOIN 01-30 18:39
PROVIDERS: ADMIT Specialist; ATTEND Specialist
PROC: 0FT44ZZ Resection of Gallbladder, Percutaneous Endoscopic Approach (ICD-10-PCS; principal; 2018-01-31)
DX: I16.0 Hypertensive urgency (principal); K80.10 Calculus of gallbladder with chronic cholecystitis without obstruction; E87.1 Hypo-osmolality and hyponatremia; G45.9 Transient cerebral ischemic attack, unspecified; F03.90 Unspecified dementia, unspecified severity, without behavioral disturbance, psychotic disturbance, mood disturbance, and anxiety
CPT/HCPCS: 36415; 36416; 70450; 70496; 70498; 70551; 71045; 76705; 78452; 80048; 80053; 80061; 80306; 82553; 83036; 83690; 83930; 83935; 84300; 84443; 84484; 85025; 85610; 85730; 88304; 90471; 90670; 93005; 93017; 94640; 94760; 96361; 96374; A4216; A9500; C9113; G0009; G0378; G8996-GN-CH; G8997-GN-CH; J2001; J2405; J2704; J2785; J3010; J7620